=== PATIENT | male | born 1960 | race Caucasian/White ===

== ENCOUNTER 2024-04-23 06:40 | Emergency (ER) | payer BC, SELFPAY ==
[2024-04-23] VITALS (12 sets, daily range): BP systolic 123–170; BP diastolic 93–97; PULSE 60–79; RESP 14–23; TEMP 36.4; O2SAT 97–100
--- NOTE | ~2024-04-23 | CT_ITS ---
EXAMINATION: CT brain wo con DATE: 04/23/2024 08:05 INDICATION: Anticoagulated patient post fall TECHNIQUE: Computed tomography (CT) of the head was performed without intravenous contrast. Sagittal and coronal reconstructions were performed. The mA was adjusted according to patient size. Iterative reconstruction technique was employed. The dose-length product was 681.00 mGy-cm. COMPARISON: None FINDINGS: No calvarial fracture. No acute intracranial hemorrhage or abnormal extra axial fluid collection. Sma ll region of relatively prominent decreased attenuation at the right basal ganglia consistent with ag e indeterminate infarct. Small old lacunar infarcts at the left caudate nucleus. Additional moderate scattered white matter hypoattenuation consistent with chronic small vessel ischemic disease. Ventric les are normal and symmetric. No mass/mass effect. Intracranial calcified cerebral atherosclerosis is noted. The orbits and paranasal sinuses are normal. Small bilateral mastoid effusions. IMPRESSION: 1. No fracture or acute intracranial hemorrhage. 2. Age-indeterminate but likely chronic infarct at the right basal ganglia with additional small old lacunar infarct at the left caudate nucleus and moderate scattered white matter hypoattenuation consi stent with chronic small vessel ischemic disease. Reviewed, dictated and finalized at location A. IMPRESSION: 1. No fracture or acute intracranial hemorrhage. 2. Age-indeterminate but likely chronic infarct at the right basal ganglia with additional small old lacunar infarct at the left caudate nucleus and moderate scattered white matter hypoattenuation consistent with chronic small vessel isc hemic disease.
--- NOTE | ~2024-04-23 | CT_ITS ---
EXAMINATION: CT cervical spine wo con DATE: 04/23/2024 08:05 INDICATION: Anticoagulated patient post fall TECHNIQUE: Computed tomography (CT) of the cervical spine was performed without intravenous contrast. Automated exposure control and iterative reconstruction technique were employed. The dose-length pro duct was 464.19 mGy-cm. COMPARISON: None FINDINGS: Straightening of the normal cervical lordosis. Vertebral body heights are normal. No acute fracture. Chronic nonunited fracture across the tip of the T1 spinous process. Severe disc height loss at C5-C6 and C6-C7 and moderate disc height loss at C4-C5. Moderate to severe associated uncovertebral osteoa rthritis and posterior disc osteophyte complexes result in mild central canal stenosis at each of the se levels. In addition there is multilevel moderate to severe bilateral cervical facet osteoarthritis which contributes to moderate neural foraminal stenosis on bilaterally at C3-C4 through C5-C6 and mi ld at the remaining levels. Atherosclerotic calcifications along the bilateral carotid and vertebral arteries. Postoperative changes at the anterior base of the neck including a stent extending between the left subclavian artery and left common carotid artery. Cervical soft tissues are otherwise unrema rkable. Visualized apices of lungs are clear. IMPRESSION: 1. 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 No acute osseous abn ormality. 2. Severe cervical spondylosis. Reviewed, dictated and finalized at location A. IMPRESSION: 1. Likely chronic nonunited fracture across the tip of the T1 spinous processes . No acute osseous abnormality. 2. Severe cervical spondylosis.
--- NOTE | 2024-04-23 06:47 | ECG_ITS ---
Test Date: 2024-04-23 06:50:22 Measurements Intervals [place] Rate: 65 P: -7 [place]: 174 QRS: 25 QRSD: 110 T: 236 QT: 408 QTc: 426 Interpretive Statements SINUS RHYTHM LEFT VENTRICULAR HYPERTROPHY AND ST-T CHANGE BORDERLINE ST-T WAVE ABNORMALITY- INFERIOR LEADS BORDERLINE ECG No previous ECG available for comparison Electronically Signed On 04-23-2024 08:05:51 CDT by Kvng Lou D.O.
--- NOTE | 2024-04-23 07:28 | ED.FALL ---
HPI - Fall General Chief Complaint: Fall Stated Complaint: fall Time Seen by Provider: 04/23/24 07:00 Source: patient, EMS and RN notes reviewed Mode of arrival: EMS Limitations: no limitations History of Present Illness HPI Narrative: Patient presents after an unwitnessed ground level fall. Patient denies loss of consciousness. He remembers the entire event states that it happened while he was reaching for his phone. He was found lying between the bed and the wall. Patient is on Eliquis. He states he rubbed the left side of his head on the wall. He has a history of a stroke which left him with left-sided deficits. He denies any chest pain, vision changes, shortness of breath, or abdominal pain. He states he has a slight headache. Denies neck pain. Denies any broken or loose dentition. Related Data Allergies Allergy/AdvReac Type Severity Reaction Status Date / Time No Known Allergies Allergy Verified 04/23/24 07:32 [facility] Past Medical History Medical History Chronic anticoagulation CVA (cerebral vascular accident) L sided deficits Social History Social History (Updated 04/23/24 @ 07:35 by Emiliana Quiros MD) Living arrangements: intermediate Additional living arrangements comments: [facility] [place] ([place]) Exam Narrative: GENERAL: Well-appearing, well-nourished, and in no acute distress. HEAD: Normocephalic, atraumatic. EYES: Non injected, non icteric. Mild hyperemia/hyperpigmentation of right eyelid. ENT: Nares clear, no rhinorrhea or epistaxis. NECK: Supple. No tenderness to palpation of cervical spine which are midline without bony step-off. CHEST: Speaking in full sentences. No respiratory distress. HEART: Regular rate and rhythm. . ABDOMEN: Soft, nondistended. EXTREMITIES: No lower extremity edema. SKIN: Warm, dry, no rash. No abrasion/laceration/ecchymosis on left side of head. NEURO: Left sided deficits (chronic). Alert and oriented x3. Sensation intact to touch in extremities x4. Speaks clearly without aphasia or dysarthria PSYCH: Flat but congruent mood and affect. Course Vital Signs Vital signs: Vital Signs Temperature 97.6 F 04/23/24 06:41 Pulse Rate 65 04/23/24 06:41 Respiratory Rate 20 04/23/24 06:41 Blood Pressure 143/93 H 04/23/24 06:41 Pulse Oximetry 100 04/23/24 06:41 Oxygen Delivery Room Air 04/23/24 06:41 Temperature 97.6 F 04/23/24 06:47 Pulse Rate 68 04/23/24 12:46 Respiratory Rate 20 04/23/24 12:46 Blood Pressure 123/97 H 04/23/24 12:46 Pulse Oximetry 97 04/23/24 12:46 Oxygen Delivery Room Air 04/23/24 06:41 MDM - Fall MDM Narrative Medical decision making narrative: Patient presents after an unwitnessed fall. He states he was reaching for his phone and rubbed his head against the wall. Denies loss of consciousness. On Eliquis. History of a stroke which left him with left-sided deficits. In the emergency department he is afebrile with vital signs notable for hypertension mild. CT imaging as below without acute process; vertebral finding felt to be chronic in nature. Creatinine 1.7. Facility did not send past medical history with him , only medication list and there is no prior for comparison in EMR. Attempted to contact facility for records (either PMH or labs upon previous hospital discharge if available) but they did not answer. Unclear if this represents CKD verses NADIA. Will give 1 L fluid bolus and treat as an NADIA. Patient otherwise stable for discharge back to facility. EMS transporatation arranged. Advised follow up lab draw if baseline Cr not elevated and follow up with director medical safety/PCP. Provided Rx for acetaminophen. Differential Diagnosis Differential diagnosis: Likely syncope, compression fracture, concussion without loss of consciousness and other (Intracranial hemorrhage, cervical spine fracture dislocation) Lab Data Attestation: I reviewed the patient's lab results. Lab results narrative: Leukocytosis and a normocytic anemia with no prior for comparison 04/23/24 08:14 04/23/24 08:14 Labs: Lab Results 04/23/24 04/23/24 Range/Units 08:14 08:14 WBC 12.4 H (4.5-10.0) K/mm3 RBC 4.27 L (4.6-6.20) M/mm3 Hgb 12.9 L (14.0-18.0) g/dL Hct 38.7 L (42.0-52.0) % MCV 90.6 (80-100) fl MCH 30.2 (26-34) pg MCHC 33.3 (32-36) g/dl RDW 14.6 H (11.5-14.5) % Plt Count 251 (150-375) k/mm3 MPV 9.7 (7.4-10.4) fl Immature Gran % (Auto) 0.6 H (0-0.5) % Neut % (Auto) 76.7 H (45.5-73.1) % Lymph % (Auto) 12.2 L (18.3-44.2) % Wolfe % (Auto) 6.7 (2.6-8.5) % Eos % (Auto) 3.3 (0-4.4) % Baso % (Auto) 0.5 (0.2-1.2) % Lymph # (Auto) 1.51 (0.9-3.2) K/mm3 Wolfe # (Auto) 0.8 H (0.1-0.6) K/mm3 Eos # (Auto) 0.4 H (0-0.3) K/mm3 Baso # (Auto) 0.1 (0.0-0.1) K/mm3 Abs Immat Gran (auto) 0.07 H (0.00-0.031) K/mm3 Absolute Neuts (auto) 9.5 H (1.3-6.7) K/mm3 Absolute Nucleated RBC 0.000 (0.0-0.012) K/mm3 Nucleated RBC % 0.0 (0.0-0.2) % PT 14.4 (11.1-14.7) Seconds INR 1.1 APTT 29.2 (22.3-36.8) Seconds Sodium 132 L (137-145) mmol/L Potassium 4.3 (3.4-5.0) mmol/L Chloride 101 (98-107) mmol/L Carbon Dioxide 23 (22-30) mmol/L Anion Gap 8 (4-12) mmol/L BUN 27 H (9-20) mg/dL Creatinine 1.70 H (0.7-1.3) mg/dL Estim Creat Clear Calc 44 ml/min Estimated GFR 41 L (59 - ) Glucose 105 (65-110) mg/dL Calcium 8.9 (8.4-10.2) mg/dL Total Bilirubin 0.3 (0.2-1.3) mg/dL AST 26 (17-59) U/L ALT 15 (6-50) U/L Alkaline Phosphatase 75 (38-126) U/L Total Creatine Kinase 90 Cancelled (55-170) U/L Total Protein 7.0 (6.3-8.2) g/dL Albumin 3.5 (3.5-5.1) g/dL Imaging Data Radiologist's impression: Impressions Head CT 04/23/24 08:09 IMPRESSION: 1. No fracture or acute intracranial hemorrhage. 2. Age-indeterminate but likely chronic infarct at the right basal ganglia with additional small old lacunar infarct at the left caudate nucleus and moderate scattered white matter hypoattenuation consistent with chronic small vessel ischemic disease. Cervical Spine CT 04/23/24 08:14 IMPRESSION: 1. 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 No acute osseous abnormality. 2. Severe cervical spondylosis. ECG Data EKG #1: Attestation: I personally reviewed and interpreted this ECG as follows: ECG completion date: 04/23/24 ECG completion time: 06:50 Prior ECG tracings: not available for review (No prior for comparison) Interpretation: Normal sinus rhythm at a rate of 65 beats per minute. CO interval 174. QRS 110. QT/QTC 408/420. Good R-wave progression across the precordial leads. T-wave inversions in leads 2 and 3 with biphasic T-waves in AVF. Left ventricular hypertrophy : S wave depth in V1 + tallest R wave height in V5-6 is >35mm though R wave in lead I + S wave in lead III is <25mm. Discharge Plan Discharge Clinical Impression: Fall, Cervical spondylosis, Closed T1 spinal fracture, Leukocytosis, Normocytic anemia, Renal insufficiency Patient Disposition: NH Fpc/Asst Living Condition: Stable Instructions: Antibiotic Form, Fall Prevention for Older Adults (ED), Transverse Process Fracture (ED) Additional Instructions: No intracranial hemorrhage or acute process, only evidence of chronic/prior. Patient did have a spinous process fracture of T1 however it appears chronic in nature. Patient should be offered acetaminophen/Tylenol over the next several days given he is likely to be sore and achy after the fall. Patient's BUN and creatinine were 27 and 1.70 respectively. No past medical history documentation was provided, we were unable to get ahold of the facility when we called, and we do not have prior labs so unsure if this represents chronic kidney disease or acute kidney injury. We gave 1 L fluid bolus. Follow up with Dr John Kaur/attending/facility director medical safety regarding the need for potential lab re-check. Return to the emergency department any new or worsening symptoms. Prescriptions: New acetaminophen 500 mg capsule 1,000 mg PO Q6H PRN (Reason: pain) Qty: 20 0RF Stand Alone Forms: Alf Discharge Time of Disposition: 09:13
[2024-04-23] MEDS: ACETAMINOPHEN 500 MG TABLET 1000 MG PO (07:32)
[2024-04-23 08:24] LABS: Basophils Absolute Auto 0.1 K/mm3 (0.0-0.1); Basophils Percent Auto 0.5 % (0.2-1.2); Eosinophils Absolute Auto 0.4 K/mm3 (0-0.3); Eosinophils Percent Auto 3.3 % (0-4.4); Hematocrit 38.7 % (42.0-52.0); Hemoglobin 12.9 g/dL (14.0-18.0); Immature Granulocyte Absolute 0.07 K/mm3 (0.00-0.031); Immature Granulocyte Percent A 0.6 % (0-0.5); Lymphocytes Absolute Auto 1.51 K/mm3 (0.9-3.2); Lymphocytes Percent Auto 12.2 % (18.3-44.2); Mean Corpuscular HGB Conc 33.3 g/dl (32-36); Mean Corpuscular Hemoglobin 30.2 pg (26-34); Mean Corpuscular Volume 90.6 fl (80-100); Mean Platelet Volume 9.7 fl (7.4-10.4); Monocytes Absolute Auto 0.8 K/mm3 (0.1-0.6); Monocytes Percent Auto 6.7 % (2.6-8.5); Neutrophils Absolute Auto 9.5 K/mm3 (1.3-6.7); Neutrophils Percent Auto 76.7 % (45.5-73.1); Platelet Count Result 251 k/mm3 (150-375); Red Blood Count 4.27 M/mm3 (4.6-6.20); Red Cell Distribution Width 14.6 % (11.5-14.5); White Blood Count 12.4 K/mm3 (4.5-10.0)
[2024-04-23 08:38] LABS: Alanine Aminotransferase 15 U/L (6-50); Albumin Level 3.5 g/dL (3.5-5.1); Alkaline Phosphatase 75 U/L (38-126); Anion Gap 8 mmol/L (4-12); Aspartate Amino Transferase 26 U/L (17-59); Bilirubin,Total 0.3 mg/dL (0.2-1.3); Blood Urea Nitrogen 27 mg/dL (9-20); Calcium 8.9 mg/dL (8.4-10.2); Carbon Dioxide 23 mmol/L (22-30); Chloride 101 mmol/L (98-107); Creatine Kinase 90 U/L (55-170); Estimated CRCL calculation 44 ml/min; Estimated Glomerular Filt Rate 41; Glucose 105 mg/dL (65-110); Potassium 4.3 mmol/L (3.4-5.0); Sodium 132 mmol/L (137-145)
[2024-04-23 08:45] LABS: INR 1.1; Prothrombin Time 14.4 Seconds (11.1-14.7)
[2024-04-23 08:46] LABS: Partial Thromboplastin Time 29.2 Seconds (22.3-36.8)
--- NOTE | 2024-04-23 08:53 | PC.NURSE ---
Attempted to call [facility] to find out any health history on pt - No answer of phone line - attempted x 3. Informed Dr Quiros.
[2024-04-23] MEDS: SODIUM CHLORIDE 0.9% IV 1,000 ML 999 ML IV CONT (09:06)
--- NOTE | 2024-04-23 12:51 | PC.NURSE ---
To [facility] per [facility]. Attempted to contact facility with no answer.
== END 2024-04-23 12:52 ==
PROVIDERS: Emergency Provider Student in an Organized Health Care Education/Training Program; PCP Internal Medicine
DX: S09.90XA Unspecified injury of head, initial encounter (principal); M84.48XA Pathological fracture, other site, initial encounter for fracture; N28.9 Disorder of kidney and ureter, unspecified; D64.9 Anemia, unspecified; D72.829 Elevated white blood cell count, unspecified; M47.812 Spondylosis without myelopathy or radiculopathy, cervical region; I69.30 Unspecified sequelae of cerebral infarction; Z79.01 Long term (current) use of anticoagulants; I51.7 Cardiomegaly; R94.31 Abnormal electrocardiogram [ECG] [EKG]; W19.XXXA Unspecified fall, initial encounter
CPT/HCPCS: 36415; 70450; 72125; 80053; 82550; 85025; 85610; 85730; 93005; 96360; 99284; A9270; J7030